=== PATIENT | male | born 1985 | race African-American/Black ===

== ENCOUNTER 2018-10-27 01:24 | Emergency (ER) | payer OTHER ==
[~2018-10-27] VITALS: Ht 175.3 cm; Wt 75.7 kg
[2018-10-27 01:30] VITALS: Ht 175.3 cm; Wt 75.7 kg
[2018-10-27 05:17] VITALS: BP 127/67
== END 2018-10-27 05:17 | disposition home or self-care (01) ==
LOC: ED 01:24
DX: K06.8 Other specified disorders of gingiva and edentulous alveolar ridge (principal); K02.9 Dental caries, unspecified

== ENCOUNTER 2020-02-09 07:51 | Emergency (ER) | payer BC ==
[~2020-02-09] VITALS: Ht 175.3 cm; Wt 73.9 kg
[2020-02-09 07:57] VITALS: Ht 175.3 cm; Wt 73.9 kg
[2020-02-09 10:00] VITALS: BP 138/82
== END 2020-02-09 10:00 | disposition home or self-care (01) ==
LOC: ED 07:51
DX: R05 Cough (principal)
CPT/HCPCS: 87804; U0002

== ENCOUNTER 2020-09-13 13:19 | Emergency (ER) | payer BC ==
[~2020-09-13] VITALS: Ht 172.7 cm; Wt 76.2 kg
[2020-09-13 13:53] VITALS: Ht 172.7 cm; Wt 76.2 kg
[2020-09-13 14:13] LABS: microscopic required? NO
[2020-09-13 14:19] LABS: urine erythrocyte NEGATIVE (NEGATIVE)
[2020-09-13 15:44] VITALS: BP 146/79
== END 2020-09-13 15:44 | disposition home or self-care (01) ==
LOC: ED 13:19
PROVIDERS: Emergency Medicine
DX: N45.1 Epididymitis (principal)
CPT/HCPCS: 87491; 87591; J0696; Q0092